=== PATIENT | female | born 1995 | race Caucasian/White ===

== ENCOUNTER 2016-08-14 17:55 | Emergency (ER) | payer MEDICAID ==
[~2016-08-14] VITALS: Ht 160 cm; Wt 56.0 kg
[2016-08-14 18:02] VITALS: Ht 160 cm; Wt 56.0 kg
--- NOTE | 2016-08-14 19:20 | ERD ---
ER Documentation Chief Complaint Date/Time DATE: 08/14/16 TIME: 19:05 Chief Complaint PELVIC PAIN N/V X1MTH , , LMP 06/08/16 HPI 21-year-old female who presented emergency room for lower abdominal pain/ cramping that radiates to her back for 2 days. No vaginal bleeding. Patient is 9 weeks . Denies headache, loss of consciousness, dizziness, blurry vision, changes in vision, photophobia, facial pain, ear pain, throat pain, difficulty swallowing, neck pain, shoulder pain, chest pain, cough, hemoptysis, loss of appetite, nausea, vomiting, hematochezia, diarrhea, constipation, urinary symptoms, bladder and bowel incontinences, extremity weakness, extremity tenderness, numbness or tingling sensation, difficulty walking, recent travel, recent exposure to illness, recent antibiotic use in the last 3 months, fever, chills LMP: June 10, 2016. A0 BLAKE: March 15, 2017. No known drug allergies. No past medical history. No surgical history. Social history: Not working at this time. Denies smoking, use of alcohol, use of illegal drugs. ROS All systems reviewed and are negative except as per history of present illness. Medications Home Meds Active Scripts Ondansetron Hcl* (Zofran*) 4 Mg Tablet, 4 MG PO Q8H Y for NAUSEA AND/OR VOMITING , #30 TAB Prov:ROBERTILABANKOKIAR F 08/14/16 Acetaminophen* (Tylenol*) 325 Mg Tablet, 1 TAB PO Q6 Y for PAIN AND OR ELEVATED TEMP, #20 TAB Prov:PASILABAN,KOKIAR F 08/14/16 Nitrofurantoin Monohyd Macrocr* (Macrobid*) 100 Mg Capsr, 100 MG PO BID for 7 Days, CAP Prov:PASILABAN,KLAR F 08/14/16 Allergies Allergies: Coded Allergies: No Known Allergy (Unverified , 08/14/16) PMhx/Soc Medical and Surgical Hx: pt denies Medical Hx, pt denies Surgical Hx Hx Alcohol Use: No Hx Substance Use: No Hx Tobacco Use: No Smoking Status: Never smoker Physical Exam Vitals Vital Signs Date Time Temp Pulse Resp B/P Pulse Ox O2 Delivery O2 Flow Rate FiO2 08/14/16 22:35 98.2 73 18 112/66 99 Room Air 08/14/16 18:02 97.4 79 20 107/74 99 Physical Exam CONSTITUTIONAL: Well-appearing; well-nourished; in no apparent distress. HEAD: Normocephalic; atraumatic. EYES: Conjunctiva clear, sclera non-icteric, EOM intact. PERRL Ears: Hearing intact. EACs clear, TMs non-bulging, non-inflamed, translucent & mobile, ossicles normal appearance, No obstructions, no erythema, no discharges Nose: No obstructions. No polyps. No external lesions. Mucosa non-inflamed. No external lesions, septum and turbinates normal. No rhinorrhea. No discharges. Frontal sinus is non-tender to palpation. Maxillary sinus is non-tender to palpation. MOUTH: Moist mucous membranes, no lesion, no obstructions, no vesicles, no thrush, patent airway Throat: Uvula in midline. Right tonsil is +1 with no erythema, no exudate. Left tonsil is +1 with no erythema, no exudate. Tolerating secretions well. Good gag reflex. Patent airway. Neck: Supple, without lesions, bruits, or adenopathy. No mass. Thyroid non- enlarged and non-tender to palpation. CHEST: Symmetrical chest. Respirations even and not labored. No retractions noted. CARDIOVASCULAR: Normal S1, S2. RRR. No murmurs, gallops. RESPIRATORY: Normal chest excursion with respiration; breath sounds clear and equal bilaterally; no wheezes, rhonchi, or rales. Breathing even and unlabored. Speaking in clear, full, and complete sentences w/ ease. ABDOMEN: Normal bowel sounds normal. Soft, round, non-distended, non-guarding, no tenderness, no rebound, no organomegaly, no masses, no pulsating abdominal mass. No hernia. No peritoneal signs. : No CVA tenderness. BACK: Symmetrical shoulder. Spine is midline without deformity, tenderness. No evidence of trauma or deformity. PELVIS: Stable pelvis. No evidence of trauma or deformity. MUSCULOSKELETAL: Normal gait and station. No misalignment, asymmetry, crepitation, defects, tenderness, masses, effusions, decreased range of motion, instability, atrophy or abnormal strength or tone in the head, neck, spine, ribs , pelvis or extremities. No calf tenderness. NEUROVASCULAR: Distal pulses are present. Pedal pulse are present, equal, and normal. Capillary refills are < 2 seconds. NEUROLOGIC: Alert and oriented x4. Speaks full and clear sentences. Cranial Nerves II-XII normal. Sensation to pain, touch, and proprioception normal. Grossly unremarkable. No neurologic deficits. Romberg test is negative. PSYCHOLOGICAL: The patients mood and manner are appropriate. No hallucinations , delusions. Not SI. Not HI. Has the capacity to decide for self SKIN: Normal for age and ethnicity; warm; dry; good turgor; no apparent lesions or exudates. No rashes, hives, discoloration. Intact. Result Diagram: 08/14/16193108/14/161931 Results 24 hrs Laboratory Tests Test 08/14/16 19:15 08/14/16 19:32 Urine Color LT. YELLOW Urine Clarity CLEAR Urine pH 6.5 Urine Specific [place] 1.010 Urine Ketones 40 Urine Nitrite NEGATIVE Urine Bilirubin NEGATIVE Urine Urobilinogen 0.2 E.U./dL Urine Leukocyte Esterase TRACE Urine Microscopic RBC 0-2/HPF Urine Microscopic WBC 0-2/HPF Urine Squamous Epithelial Cells FEW Urine Hemoglobin TRACE Urine Glucose NEGATIVE% Urine Total Protein NEGATIVE White Blood Count 7.910^3/ul Red Blood Count 4.7910^6/ul Hemoglobin 13.9g/dl Hematocrit 40.2% Mean Corpuscular Volume 83.9fl Mean Corpuscular Hemoglobin 29.0pg Mean Corpuscular Hemoglobin Concent 34.6g/dl Red Cell Distribution Width 12.2% Platelet Count 85952^3/UL Mean Platelet Volume 9.6fl Neutrophils % 75.3% Lymphocytes % 17.3% Monocytes % 5.7% Eosinophils % 0.8% Basophils % 0.4% Nucleated Red Blood Cells % 0.0/100WBC Neutrophils # 5.910^3/ul Lymphocytes # 1.410^3/ul Monocytes # 0.510^3/ul Eosinophils # 0.110^3/ul Basophils # 0.010^3/ul Nucleated Red Blood Cells # 0.010^3/ul Sodium Level 136mmol/L Potassium Level 3.4mmol/L Chloride Level 96mmol/L Carbon Dioxide Level 26mmol/L Anion Gap 17 Blood Urea Nitrogen 8mg/dl Creatinine 0.55mg/dl Glucose Level 89mg/dl Calcium Level 9.4mg/dl Total Bilirubin 0.4mg/dl Direct Bilirubin 0.00mg/dl Indirect Bilirubin 0.4mg/dl Aspartate Amino Transf (AST/SGOT) 29IU/L Alanine Aminotransferase (ALT/SGPT) 49IU/L Alkaline Phosphatase 90IU/L Total Protein 8.1g/dl Albumin 4.6g/dl Globulin 3.50g/dl Albumin/Globulin Ratio 1.31 Lipase 60U/L Serum HCG, Qualitative POSITIVE Beta HCG, Quantitative 730290.0mIU/ml Current Medications Medications (Trade) Dose Ordered Sig/William Route PRN Reason Start Time Stop Time Status Last Admin Dose Admin Ondansetron HCl (Zofran Odt) 4 mg ONCE STAT ODT 08/14/16 22:11 08/14/16 22:12 DC 08/14/16 22:26 Acetaminophen (Tylenol Tab) 500 mg ONCE STAT PO 08/14/16 22:11 08/14/16 22:12 DC 08/14/16 22:27 Procedures/MDM Examination: Please see physical examination. Disease process, medical treatment was explained to the patient and family member. They verbalized understanding and agreed with the diagnostic tests, medical treatment, and follow-up care. Radiology: OB ultrasound Impression: Single live intrauterine consistent with a gestational age of 9 weeks, 2 days. Estimated date of delivery is 03/17/2017. Dating by ultrasound is within 2 days of dating by LMP. Bilateral ovaries are not visualized. There are no abnormal adnexal masses. Blood works: Reviewed. Type and Rh is O-Negative. Patient denies vaginal bleeding. POC urine : Positive. Urinalysis: Reviewed. Treatment: Tylenol. Zofran. Re-evaluation: Denies headache, dizziness, blurry vision, neck pain, shoulder pain, chest pain, abdominal pain, back pain, nausea. No episode of emesis here in the emergency department. Denies active bleeding. No neurovascular deficits. No neurological deficits. Consultation: None. Differential diagnosis: Ectopic versus abdominal pain in versus urinary tract infection in Medical decision makin-year-old female who presented emergency room for lower abdominal pain/cramping that radiates to her back for 2 days. No vaginal bleeding. Patient's complaint, patient's history about her complaint, my physical findings, diagnostic test results, my reevaluation are consistent with final diagnosis of abdominal pain in , UTI. Medications prescribed are the following: Macrobid. Tylenol. Patient and family member are made aware of the side effects and adverse reactions of the medications prescribed. Instructed on when to seek emergent and medical attention in case allergic/anaphylactic reactions or severe side effects and or adverse reactions to medications. Patient and family member verbalized understanding. Patient instructed Instructed to follow-up with his PCP in 24-48 hours. Follow-up with OB in the next 24-48 hours. Instructed to Call 911 for chest pain, shortness of breath. Advised to come back here in ED as soon as possible for severity of symptoms which includes but not limited to: any new symptoms; shortness of breath/difficulty of breathing; cardiovascular changes; severe gastrointestinal symptoms; signs and symptoms of bleeding and or infection; signs of compartment syndrome/neurovascular changes; neurological changes/deficits. Patient and family member verbalized understanding. Upon discharge, patient is alert and oriented x 4, speaks full and clear sentences, denies pain, has no neurological deficits, has no neurovascular deficits, difficulty of breathing. Breathing even and unlabored. Lung sounds are clear to auscultation. Not in distress. Appears comfortable. Ambulatory with steady gait. Appears satisfied with care provided here in ED. Departure Diagnosis: Primary Impression: Abdominal pain during in first trimester Additional Impressions: Abdominal pain during UTI (urinary tract infection) in in first trimester Condition: Stable Additional Instructions: Patient instructed Instructed to follow-up with his PCP in 24-48 hours. Follow-up with OB in the next 24-48 hours. Instructed to Call 911 for chest pain, shortness of breath. Advised to come back here in ED as soon as possible for severity of symptoms which includes but not limited to: any new symptoms; shortness of breath/difficulty of breathing; cardiovascular changes; severe gastrointestinal symptoms; signs and symptoms of bleeding and or infection; signs of compartment syndrome/neurovascular changes; neurological changes/deficits. Patient and family member verbalized understanding. MICHELLE WOODS August 14, 2016 19:20
[2016-08-14 19:45] LABS: ADD SCAN DIFF NO
[2016-08-14 19:47] LABS: BASOPHILS % 0.4 % (0.0-2.0); EOSINOPHILS # 0.1 10^3/ul (0.0-0.5); EOSINOPHILS % 0.8 % (0.0-7.0); HEMATOCRIT 40.2 % (37.0-47.0); HEMOGLOBIN 13.9 g/dl (12.0-16.0); LYMPHOCYTES # 1.4 10^3/ul (0.8-2.9); LYMPHOCYTES % 17.3 % (15.0-51.0); MEAN CORPUSCULAR HGB CONC 34.6 g/dl (32.0-37.0); MEAN CORPUSCULAR VOLUME 83.9 fl (82.0-101.0); MEAN PLATELET VOLUME 9.6 fl (7.4-10.4); MONOCYTE # 0.5 10^3/ul (0.3-0.9); MONOCYTES % 5.7 % (0.0-11.0); NEUTROPHIL # 5.9 10^3/ul (1.6-7.5); NEUTROPHILS % 75.3 % (39.0-77.0); PLATELET COUNT 317 10^3/UL (140-415); RED BLOOD COUNT 4.79 10^6/ul (4.20-5.40); RED CELL DISTRIBUTION WIDTH 12.2 % (11.5-14.5); WHITE BLOOD COUNT 7.9 10^3/ul (4.8-10.8)
--- NOTE | 2016-08-14 19:56 | RADRPT ---
PROCEDURE: OBSTETRICAL ULTRASOUND WITH ENDOVAGINAL IMAGES CLINICAL INDICATION: abdominal pain, vaginal bleeding TECHNIQUE: Multiple sonographic images of the pelvis were obtained utilizing a transabdominal and endovaginal technique. The images were reviewed on a PACS workstation. COMPARISON: None. LMP: 06/08/2016 FINDINGS: There is a single live intrauterine with heart rate of 168 beats per minute, mean sa c diameter of 3.84 cm, and crown-rump length of 2.68 cm which is consistent with a gestational age o f 9 weeks, 2 days . The estimated date of delivery by ultrasound is 03/17/2017 . The estimated gestational age by LMP is 9 weeks, 4 days . The estimated date of delivery by LMP is 03/15/2017 . Bilateral ovaries are not visualized. There are no abnormal adnexal masses. No significant pelvic free fluid is identified. IMPRESSION: Single live intrauterine consistent with a gestational age of 9 weeks, 2 days . The estimated date of delivery is 03/17/2017 . Dating by ultrasound is within 2 days of dating by LMP. Bilateral ovaries are not visualized. There are no abnormal adnexal masses. RPTAT: EE Physician Belem Date Time Electronically viewed and signed by Physician Belem on 08/14/2016 19:56 /
[2016-08-14 20:02] LABS: ALBUMIN 4.6 g/dl (3.3-4.9)
[2016-08-14 20:03] LABS: POTASSIUM 3.4 mmol/L (3.5-5.1)
[2016-08-14 20:05] LABS: BILIRUBIN,INDIRECT 0.4 mg/dl (0-1.1); BILIRUBIN,TOTAL 0.4 mg/dl (0.2-1.3); CREATININE 0.55 mg/dl (0.44-1.00)
[2016-08-14 20:06] LABS: ALBUMIN/GLOBULIN RATIO 1.31; CALCIUM 9.4 mg/dl (8.4-10.2); TOTAL PROTEIN 8.1 g/dl (6.1-8.1)
[2016-08-14 20:07] LABS: ADD UMIC YES; URINE BILIRUBIN (Dip) NEGATIVE (NEGATIVE); URINE BLOOD (Dip) TRACE (NEGATIVE); URINE COLOR LT. YELLOW (YELLOW); URINE GLUCOSE (Dip) NEGATIVE (NEGATIVE); URINE KETONES (Dip) 40 (NEGATIVE); URINE LEUKOCYTE ESTERASE (Dip) TRACE (NEGATIVE); URINE NITRITE (Dip) NEGATIVE (NEGATIVE); URINE TOTAL PROTEIN (Dip) NEGATIVE (NEGATIVE); URINE UROBILINOGEN (Dip) 0.2 E.U./dL (0.1-1.0)
[2016-08-14 20:17] LABS: SQUAMOUS EPITHELIAL CELL,UR FEW; URINE RBCS 0-2 /HPF (0)
[2016-08-14] MEDS ORDERED: ACET325T33 PO (22:10)
[2016-08-14] MEDS ORDERED: ONDA4TAB8 PO (22:10)
[2016-08-14] MEDS ORDERED: NITR-58 PO (22:10)
[2016-08-14] MEDS ORDERED: ONDANSETRON (ODT) 4 MG TAB ODT STA (22:11)
[2016-08-14] MEDS ORDERED: ACETAMINOPHEN 500 MG TAB PO STA (22:11)
[2016-08-14 22:35] VITALS: BP 112/66; PULSE 73; RESP 18; TEMP 98.2
== END 2016-08-14 22:36 | disposition home or self-care (01) ==
LOC: FTE 17:55
DX: O26.891 Other specified pregnancy related conditions, first trimester (principal); R10.2 Pelvic and perineal pain; O23.41 Unspecified infection of urinary tract in pregnancy, first trimester; Z3A.09 9 weeks gestation of pregnancy
CPT/HCPCS: 36415; 76801; 80053; 81001; 83690; 84702; 84703; 85025; 86900; 86901; Z7502; Z7610; 81003

== ENCOUNTER 2016-08-27 17:40 | Emergency (ER) | payer MEDICAID ==
[~2016-08-27] VITALS: Wt 54.5 kg
[~2016-08-27 17:40] MED LIST: ACET325T33 PO; NITR-58 PO; ONDA4TAB8 PO
[2016-08-27] MEDS ORDERED: SOD CHLORIDE 0.9% 1,000 ML IV STA (19:23)
--- NOTE | 2016-08-27 20:34 | RADRPT ---
PROCEDURE: US OB. CLINICAL INDICATION: Vomiting. TECHNIQUE: Multiple sonographic images of the pelvis were obtained. Transabdominal and transvagin al views of the pelvis are available for review. The images were reviewed on a PACS workstation. COMPARISON: 08/14/2016 FINDINGS: A single live intrauterine is identified. heart rate is 166 beats per minute. The cr own-rump length is 52.5 mm which corresponds to 11 weeks 6 days gestational age by ultrasound criter ia. Estimated date of delivery is 03/12/2017. No subchorionic hemorrhage is identified. There is 1.9 cm simple cyst in the right ovary. Right ovary is otherwise normal appearance with vascular jason w. Left ovary was not visualized. There is no adnexal mass or free fluid. IMPRESSION: 1. Single live intrauterine gestation of approximately 11 weeks 6 days. 2. No subchorionic hemorrhage. 3. Simple right ovarian cyst. 4. Left ovary not visualized. RPTAT: [facility]VK .Ricky Hopson MD, Date Time Electronically viewed and signed by .Ricky Hopson MD, MD on 08/27/2016 20:33 .K/
[2016-08-27 20:39] LABS: ADD SCAN DIFF NO
[2016-08-27 20:42] LABS: BASOPHILS % 0.4 % (0.0-2.0); EOSINOPHILS # 0.1 10^3/ul (0.0-0.5); EOSINOPHILS % 0.7 % (0.0-7.0); HEMATOCRIT 39.3 % (37.0-47.0); HEMOGLOBIN 13.6 g/dl (12.0-16.0); LYMPHOCYTES # 1.3 10^3/ul (0.8-2.9); LYMPHOCYTES % 17.2 % (15.0-51.0); MEAN CORPUSCULAR HEMOGLOBIN 28.8 pg (29.0-33.0); MEAN CORPUSCULAR HGB CONC 34.6 g/dl (32.0-37.0); MEAN CORPUSCULAR VOLUME 83.3 fl (82.0-101.0); MEAN PLATELET VOLUME 9.7 fl (7.4-10.4); MONOCYTE # 0.4 10^3/ul (0.3-0.9); MONOCYTES % 5.7 % (0.0-11.0); NEUTROPHIL # 5.7 10^3/ul (1.6-7.5); NEUTROPHILS % 75.7 % (39.0-77.0); PLATELET COUNT 298 10^3/UL (140-415); RED BLOOD COUNT 4.72 10^6/ul (4.20-5.40); RED CELL DISTRIBUTION WIDTH 12.3 % (11.5-14.5); WHITE BLOOD COUNT 7.5 10^3/ul (4.8-10.8)
[2016-08-27 20:51] LABS: URINE BILIRUBIN (Dip) 1+ (NEGATIVE); URINE BLOOD (Dip) NEGATIVE (NEGATIVE); URINE COLOR ORANGE (YELLOW); URINE GLUCOSE (Dip) NEGATIVE (NEGATIVE); URINE KETONES (Dip) 3+ (NEGATIVE); URINE LEUKOCYTE ESTERASE (Dip) NEGATIVE (NEGATIVE); URINE NITRITE (Dip) NEGATIVE (NEGATIVE); URINE UROBILINOGEN (Dip) 1.0 E.U./dL (0.1-1.0)
[2016-08-27 20:54] LABS: ALBUMIN 4.9 g/dl (3.3-4.9); ALBUMIN/GLOBULIN RATIO 1.75; BILIRUBIN,INDIRECT 0.7 mg/dl (0-1.1); BILIRUBIN,TOTAL 0.7 mg/dl (0.2-1.3); CALCIUM 9.3 mg/dl (8.4-10.2); CREATININE 0.55 mg/dl (0.44-1.00); POTASSIUM 3.7 mmol/L (3.5-5.1); TOTAL PROTEIN 7.7 g/dl (6.1-8.1)
--- NOTE | 2016-08-27 20:54 | ERD ---
ER Documentation Chief Complaint Date/Time DATE: 08/27/16 TIME: 20:51 Chief Complaint NBAUSEA, VOMITING, PT 11 WKS PG, REFERED PER PMD HPI This is a 21-year-old female presenting to the emergency department with nausea , vomiting and dizziness. Patient is currently 11 weeks . Patient is a A0. Patient recently lost 7 pounds within the last month due to nausea and vomiting. Patient is vomiting several times a day nonbloody nonbilious emesis. Patient was seen by her REPRODUCTION ARTIST and was referred to the ER for evaluation. No fevers or chills. No abdominal pain or pelvic pain. No vaginal bleeding or vaginal discharge. No rashes or pruritus. No weakness, malaise, chest pain, shortness of breath or difficulty breathing. ROS All systems reviewed and are negative except as per history of present illness. Medications Home Meds Active Scripts Acetaminophen* (Tylenol*) 325 Mg Tablet, 2 TAB PO Q6 Y for PAIN AND OR ELEVATED TEMP, #20 TAB Prov:SUSANA VEGA NP 08/27/16 Ondansetron Hcl* (Zofran*) 4 Mg Tablet, 4 MG PO Q6H for NAUSEA AND/OR VOMITING, #10 TAB Prov:SUSANA VEGA NP 08/27/16 Ondansetron Hcl* (Zofran*) 4 Mg Tablet, 4 MG PO Q8H Y for NAUSEA AND/OR VOMITING , #30 TAB Prov:MICHELLE WOODS F 08/14/16 Acetaminophen* (Tylenol*) 325 Mg Tablet, 1 TAB PO Q6 Y for PAIN AND OR ELEVATED TEMP, #20 TAB Prov:MICHELLE WOODS F 08/14/16 Nitrofurantoin Monohyd Macrocr* (Macrobid*) 100 Mg Capsr, 100 MG PO BID for 7 Days, CAP Prov:PASILAKOKI COLLINSAR F 08/14/16 Allergies Allergies: Coded Allergies: No Known Allergy (Unverified , 08/14/16) PMhx/Soc Medical and Surgical Hx: pt denies Medical Hx, pt denies Surgical Hx Hx Alcohol Use: No Hx Substance Use: No Hx Tobacco Use: No Smoking Status: Never smoker Physical Exam Vitals Vital Signs Date Time Temp Pulse Resp B/P Pulse Ox O2 Delivery O2 Flow Rate FiO2 08/27/16 22:15 72 17 90/56 99 Room Air 08/27/16 17:43 97.7 77 17 104/60 98 Physical Exam Const: no acute distress, alert Head: Atraumatic Eyes: Normal Conjunctiva ENT: Normal External Ears, Nose and Mouth. Neck: Full range of motion..~ No meningismus. Resp: Clear to auscultation bilaterally. No wheezing, rhonchi or crackles. Cardio: Regular rate and rhythm, no murmurs Abd: Soft, non tender, non distended. Normal bowel sounds Skin: No petechiae or rashes Back: No midline or flank tenderness Ext: No cyanosis, or edema Neur: Awake and alert Psych: Normal Mood and Affect Result Diagram: 08/27/16200408/27/162004 Results 24 hrs Laboratory Tests Test 08/27/16 20:00 08/27/16 20:05 Urine Color ORANGE Urine Clarity SL.CLOUDY Urine pH 6.0 Urine Specific [place] 1.025 Urine Ketones 3+ Urine Nitrite NEGATIVE Urine Bilirubin 1+ Urine Ictotest NEGATIVE Urine Urobilinogen 1.0 E.U./dL Urine Leukocyte Esterase NEGATIVE Urine Microscopic RBC NONE SEEN/HPF Urine Microscopic WBC 10-25/HPF Urine Squamous Epithelial Cells MANY Urine Bacteria MODERATE Urine Mucus MANY Urine Yeast FEW Urine Hemoglobin NEGATIVE Urine Glucose NEGATIVE% Urine Total Protein NEGATIVE White Blood Count 7.510^3/ul Red Blood Count 4.7210^6/ul Hemoglobin 13.6g/dl Hematocrit 39.3% Mean Corpuscular Volume 83.3fl Mean Corpuscular Hemoglobin 28.8pg Mean Corpuscular Hemoglobin Concent 34.6g/dl Red Cell Distribution Width 12.3% Platelet Count 66650^3/UL Mean Platelet Volume 9.7fl Neutrophils % 75.7% Lymphocytes % 17.2% Monocytes % 5.7% Eosinophils % 0.7% Basophils % 0.4% Nucleated Red Blood Cells % 0.0/100WBC Neutrophils # 5.710^3/ul Lymphocytes # 1.310^3/ul Monocytes # 0.410^3/ul Eosinophils # 0.110^3/ul Basophils # 0.010^3/ul Nucleated Red Blood Cells # 0.010^3/ul Sodium Level 136mmol/L Potassium Level 3.7mmol/L Chloride Level 103mmol/L Carbon Dioxide Level 26mmol/L Anion Gap 11 Blood Urea Nitrogen 10mg/dl Creatinine 0.55mg/dl Glucose Level 78mg/dl Calcium Level 9.3mg/dl Total Bilirubin 0.7mg/dl Direct Bilirubin 0.00mg/dl Indirect Bilirubin 0.7mg/dl Aspartate Amino Transf (AST/SGOT) 25IU/L Alanine Aminotransferase (ALT/SGPT) 38IU/L Alkaline Phosphatase 83IU/L Total Protein 7.7g/dl Albumin 4.9g/dl Globulin 2.80g/dl Albumin/Globulin Ratio 1.75 Beta HCG, Quantitative 556364.0mIU/ml Current Medications Medications (Trade) Dose Ordered Sig/William Route PRN Reason Start Time Stop Time Status Last Admin Dose Admin Sodium Chloride (NS) 1,000 ml @ 1,000 mls/hr Q1H STAT IV 08/27/16 19:23 08/27/16 20:22 DC 08/27/16 20:13 Procedures/MDM Patient: KASHIF ALTMAN : 1995 Age: 21 Sex: F MR #: [id number] DOS: 08/27/16 1923 Ordering MD: SUSANA VEGA NP Location: [facility] Room/Bed: PROCEDURE: US OB. CLINICAL INDICATION: Vomiting. TECHNIQUE: Multiple sonographic images of the pelvis were obtained. Transabdominal and transvaginal views of the pelvis are available for review. The images were reviewed on a PACS workstation. COMPARISON: 08/14/2016 FINDINGS: A single live intrauterine is identified. heart rate is 166 beats per minute. The crown-rump length is 52.5 mm which corresponds to 11 weeks 6 days gestational age by ultrasound criteria. Estimated date of delivery is 03/12/2017. No subchorionic hemorrhage is identified. There is 1.9 cm simple cyst in the right ovary. Right ovary is otherwise normal appearance with vascular flow. Left ovary was not visualized. There is no adnexal mass or free fluid. IMPRESSION: 1. Single live intrauterine gestation of approximately 11 weeks 6 days. 2. No subchorionic hemorrhage. 3. Simple right ovarian cyst. 4. Left ovary not visualized. MDM: 21-year-old female presents emergency department for nausea, vomiting and dizziness. Patient states she has been nauseous and vomiting for the past 11 weeks since she has been . Patient has lost 7 pounds in the past 11 weeks due to vomiting. Patient states she does have dizziness that is worse with standing. Vital signs are stable. No fevers or chills. IV access obtained and patient given 1 L IV fluid bolus. OB ultrasound reviewed by radiologist as single live intrauterine gestation of approximately 11 weeks 6 days. No subchorionic hemorrhage. Simple right ovarian cyst. Left ovary not visualized. Upon reassessment, patient now denies nausea, vomiting or dizziness. Patient states she is feeling much better. Vitals are stable. Labs are unremarkable. Low suspicion for anemia, ectopic , acute NM, CVA, subdural hematoma, UTI or pyelonephritis. Differential diagnosis includes but not limited to hyperemesis gravidarum, nausea and vomiting in , viral gastroenteritis , gastritis, GERD, peptic ulcer disease or pneumonia. Patient is appropriate for outpatient management and will be given prescription for Zofran and Tylenol. Instructed patient to follow-up with REPRODUCTION ARTIST, [facility] group in the next 2-3 days for reassessment and additional management. Return to ED for any high fever, chest pain, difficulty breathing, shortness breath, wheezing, vomiting, diarrhea, abdominal pain or any new or worsening symptoms. Patient verbalizes understanding. All questions answered at discharge. Beninese translation use during this encounter. Departure Diagnosis: Primary Impression: Nausea and vomiting Vomiting type: unspecified Vomiting Intractability: unspecified Qualified Code: R11.2 - Nausea and vomiting, intractability of vomiting not specified, unspecified vomiting type Condition: Stable SUSANA VEGA NP Aug 27, 2016 20:54
[2016-08-27 21:03] LABS: ADD UMIC NO; ICTOTEST NEGATIVE (NEGATIVE); URINE TOTAL PROTEIN (Dip) NEGATIVE (NEGATIVE)
[2016-08-27 21:05] LABS: BACTERIA,URINE MODERATE; MUCUS,URINE MANY; SQUAMOUS EPITHELIAL CELL,UR MANY; URINE RBCS NONE SEEN /HPF (0)
[2016-08-27] MEDS ORDERED: ONDA4TAB8 PO (21:53)
[2016-08-27] MEDS ORDERED: ACET325T33 PO (21:53)
[2016-08-27 22:15] VITALS: BP 90/56; PULSE 72; RESP 17
== END 2016-08-27 22:16 | disposition home or self-care (01) ==
LOC: FTE 17:40
DX: O21.9 Vomiting of pregnancy, unspecified (principal); Z3A.11 11 weeks gestation of pregnancy
CPT/HCPCS: 76801; 80053; 81001; 81003; 84702; 85025; 86900; 86901; 87086; J7030; 36415

== ENCOUNTER 2017-03-11 19:34 | Inpatient (IN) | payer MEDICAID ==
[~2017-03-11] VITALS: Ht 153.7 cm; Wt 66.5 kg
[~2017-03-11 19:34] MED LIST changes: -ACET325T33 PO; -NITR-58 PO; -ONDA4TAB8 PO; +PREN-6 PO
[2017-03-11 21:44] LABS: ADD UMIC YES; UR ASCORBIC ACID NEGATIVE (NEGATIVE); UR BACTERIA FEW /HPF (NONE SEEN); UR BILIRUBIN (Dip) NEGATIVE (NEGATIVE); UR BLOOD (Dip) NEGATIVE (NEGATIVE); UR CLARITY CLEAR (CLEAR); UR COLOR STRAW (YELLOW); UR GLUCOSE (Dip) NEGATIVE (NEGATIVE); UR KETONES (Dip) NEGATIVE (NEGATIVE); UR LEUKOCYTE ESTERASE (Dip) TRACE Leu/ul (NEGATIVE); UR NITRITE (Dip) NEGATIVE (NEGATIVE); UR RBC 1 /HPF (0-5); UR SPECIFIC GRAVITY (Dip) 1.008 (1.003-1.030); UR TOTAL PROTEIN (Dip) NEGATIVE (NEGATIVE); UR UROBILINOGEN (Dip) NEGATIVE (NEGATIVE)
[2017-03-11] MEDS: LACTATED RINGER'S 1,000 ML IV SCH (23:29)
[2017-03-11] MEDS ORDERED: IBUPROFEN 600 MG TAB PO PRN (23:30)
[2017-03-11] MEDS ORDERED: OXYTOCIN 30 UNITS/LR 500 ML IV PRN (23:30)
[2017-03-11] MEDS ORDERED: OXYTOCIN 30 UNITS/LR 500 ML IV SCH ×2 (23:30)
[2017-03-11] MEDS ORDERED: LIDOCAINE 1% (MPF) 30 ML INJ INJ PRN (23:30)
[2017-03-11] MEDS ORDERED: METHYLERGONOVINE 0.2 MG INJ IM PRN (23:30)
[2017-03-11] MEDS ORDERED: MISOPROSTOL 200 MCG TAB PR PRN (23:30)
[2017-03-11] MEDS ORDERED: CARBOPROST 250 MCG INJ IM PRN (23:30)
[2017-03-11 23:47] LABS: BASOPHILS % 0.3 % (0.0-2.0); EOSINOPHILS % 0.5 % (0.0-7.0); HEMATOCRIT 31.7 % (37.0-47.0); HEMOGLOBIN 10.6 g/dl (12.0-16.0); LYMPHOCYTES # 1.2 10^3/ul (0.8-2.9); MEAN CORPUSCULAR HEMOGLOBIN 26.5 pg (29.0-33.0); MEAN CORPUSCULAR HGB CONC 33.4 g/dl (32.0-37.0); MEAN CORPUSCULAR VOLUME 79.3 fl (82.0-101.0); MEAN PLATELET VOLUME 11.2 fl (7.4-10.4); MONOCYTE # 0.4 10^3/ul (0.3-0.9); MONOCYTES % 5.7 % (0.0-11.0); NEUTROPHILS % 75.2 % (39.0-77.0); PLATELET COUNT 254 10^3/UL (140-415); RED CELL DISTRIBUTION WIDTH 14.5 % (11.5-14.5); WHITE BLOOD COUNT 6.7 10^3/ul (4.8-10.8)
--- NOTE | 2017-03-12 00:10 | TRIAGE ---
OB Triage Datetime Report Generated by CPN: 03/12/2017 00:09 Datetime: 03/11/2017 22:51 Labor Evaluation Frequency: 2-6 Monitor Mode: External Quality: Moderate Pattern: Normal: <= 5 Contractions in 10 Minutes Resting Tone Palominas: Relaxed Heart Rate FHR Baseline Rate: 130 Monitor Mode: External US FHR Baseline Changes: No Baseline Change Variability: Moderate 6-25 bpm Accelerations: 15X15 Decelerations: None Category: Category I Pain Assessment Pain Scale: 6 Pain Presence: Intermittent Pain Type: Contraction Pain Location: Abdomen Vaginal Exam Dilatation (cms): 4.0 Effacement (%): 90 Station: -2 Exam By: Greg Mcmahon Membrane Status: Intact Vaginal Bleeding: Scant Cervix, Consistency: Soft Cervix, Position: Posterior Presentation 'A': Cephalic Datetime: 03/11/2017 22:34 Stage of : OB Triage Monitor Mode: External Quality: Moderate Resting Tone Palominas: Relaxed Monitor Mode: External US Datetime: 03/11/2017 20:59 Stage of : OB Triage Heart Rate FHR Baseline Rate: 135 Monitor Mode: External US FHR Baseline Changes: No Baseline Change Variability: Moderate 6-25 bpm Accelerations: 15X15 Decelerations: None Datetime: 03/11/2017 20:39 Time of Arrival: 03/11/2017 19:28 EGA: 39.3 Arrived By: Wheelchair Arrived From: Home Chief Complaint: c/o irreg ucs Movement: Present Contractions: Irregular Time Contractions Began: 03/11/2017 20:00 Contractions: 10-15 Rupture of Membranes: Denies Vaginal Discharge: Denies Recent Sexual Intercouse: Denies Abdominal Trauma: Not Applicable Patient Complaints: Contractions Time Provider Notified: 03/11/2017 21:00 Provider Notified: Dr Decker Initial Plan: EFM,SVE Datetime: 03/11/2017 20:37 Monitor Mode: External Quality: Mild Pattern: Normal: <= 5 Contractions in 10 Minutes Resting Tone Palominas: Relaxed Heart Rate FHR Baseline Rate: 140 Monitor Mode: External US FHR Baseline Changes: No Baseline Change Variability: Moderate 6-25 bpm Accelerations: 15X15 Decelerations: None Category: Category I Pain Assessment Pain Scale: 5 Pain Presence: Intermittent Pain Type: Cramping Pain Location: Abdomen Vaginal Exam Dilatation (cms): 1.5 Effacement (%): 80 Station: -2 Exam By: Greg MCMAHON Membrane Status: Intact Vaginal Bleeding: Scant Cervix, Consistency: Soft Cervix, Position: Posterior Presentation 'A': Cephalic Datetime: 03/11/2017 19:48 Stage of : OB Triage Maternal Assessment Level of Consciousness: Fully Conscious Headache: Denies Blurred Vision: No Nausea/Vomiting: Denies RUQ Epigastric Pain: Denies Facial Edema: None Monitor Mode: External Resting Tone Palominas: Relaxed Heart Rate FHR Baseline Rate: 140 Monitor Mode: External US Pain Assessment Pain Scale: 6 Pain Presence: Intermittent Pain Type: Contraction Pain Location: Abdomen Datetime: 02/01/2017 08:10 Stage of : OB Triage Datetime: 02/01/2017 07:26 Labor Evaluation Frequency: 00 Monitor Mode: External Duration (sec)2399: 0 Pattern: Tachysystole: > 5 Contractions in 10 Minutes Resting Tone Palominas: Relaxed Contraction Comments: pt dfenies uc's Heart Rate FHR Baseline Rate: 135 Monitor Mode: External US Variability: Moderate 6-25 bpm Accelerations: 15X15 Decelerations: None Category: Category I Datetime: 02/01/2017 07:15 Stage of : OB Triage Assessment Type: Triage Maternal Assessment Level of Consciousness: Fully Conscious DTR's/Clonus: DTRs 2+; No Clonus Headache: Denies Blurred Vision: No Respiratory Effort: Unlabored; Regular Rhythm; Equal Expansion Breath Sounds, Left: Clear and Equal Breath Sounds, Right: Clear and Equal Nausea/Vomiting: Denies RUQ Epigastric Pain: Denies Lower Extremities Edema: None Degree: None Upper Extremities Edema: None Degree: None Facial Edema: None Temperature Route: Axillary Fall Risk Assessment History of Falling: (0) No Secondary Diagnosis: (0) No Ambulatory Aid: (0) Bedrest/Nurse Assist IV Therapy: (0) No Gait: (0) Normal/Bedrest/Immobile Mental Status: (0) Oriented to Own Ability Fall Score: 0 Fall Risk Score Definition: No Risk: No action required Pain Assessment Pain Scale: 0 Pain Presence: None/Denies Pain Type: N/A Datetime: 02/01/2017 06:42 Assessment Type: Triage Maternal Assessment Level of Consciousness: Fully Conscious DTR's/Clonus: DTRs 2+; No Clonus Headache: Denies Blurred Vision: No Respiratory Effort: Unlabored Breath Sounds, Left: Clear and Equal Breath Sounds, Right: Clear and Equal Nausea/Vomiting: Denies RUQ Epigastric Pain: Denies Lower Extremities Edema: Bilateral Lower Extremities Degree: 1+ Upper Extremities Edema: None Degree: None Facial Edema: None Fall Risk Assessment History of Falling: (0) No Secondary Diagnosis: (0) No Ambulatory Aid: (0) Bedrest/Nurse Assist IV Therapy: (0) No Gait: (0) Normal/Bedrest/Immobile Mental Status: (0) Oriented to Own Ability Fall Score: 0 Fall Risk Score Definition: No Risk: No action required Datetime: 02/01/2017 06:40 Time of Arrival: 02/01/2017 06:20 EGA: 34.0 Arrived By: Wheelchair Arrived From: Home Chief Complaint: DFM Movement: Absent Contractions: Denies/Absent Rupture of Membranes: Denies Vaginal Bleeding: None Vaginal Discharge: Denies Recent Sexual Intercouse: Denies Abdominal Trauma: Not Applicable Patient Complaints: Other Time Provider Notified: 02/01/2017 08:10 Provider Notified: DR. OLSON Initial Plan: VS, EFM, BPP Datetime: 02/01/2017 06:32 Stage of : OB Triage Monitor Mode: External Monitor Mode: External US
[2017-03-12 00:18] LABS: INR 0.86; PARTIAL THROMBOPLASTIN TIME 24.9 Sec (25.0-35.0); PROTIME 11.8 Sec (11.9-14.9); PT RATIO 0.9
[2017-03-12] MEDS: BUTORPHANOL 2 MG INJ IV PRN ×2 (00:52→05:34)
[2017-03-12 05:28] VITALS: Ht 153.7 cm; Wt 66.5 kg
[2017-03-12] MEDS: LACTATED RINGER'S 1,000 ML IV SCH ×3 (06:51→16:20)
[2017-03-12] MEDS ORDERED: ONDANSETRON 4 MG INJ ONE (09:23)
[2017-03-12] MEDS ORDERED: ONDANSETRON 4 MG INJ IV PRN ×2 (09:30→15:00)
[2017-03-12] MEDS ORDERED: ACETAMINOPHEN 325 MG TAB PO ONE (09:30)
[2017-03-12] MEDS ORDERED: OXYTOCIN 30 UNITS/LR 500 ML IV SCH (11:00)
[2017-03-12] MEDS ORDERED: FENTAnyl 2MCG/ML-ROPIV 0.2% 100 ML ONE (14:17)
--- NOTE | 2017-03-12 14:48 | HP ---
Date/Time of Note Date/Time of Note DATE: 03/12/17 TIME: 14:42 OB - History Hx of Present Free Text/Dictation 21-year-old female at 39+ weeks gestation admitted complaining of liver pain started a few hours prior to admission Denies rupture of membrane Last Menstrual Period: Jun 08, 2016 Estimated Due Date: Mar 15, 2017 : 1 Para: 0 Care: Good Care Ultrasounds: Normal mid trimester US Obstetrical Complications: None Medical Complications: None Past Family/Social History * Past Medical, Surgical, Family and Obstetric Histories reviewed from chart. Blood Type: O- Rubella: immune RPR/VDRL: Negative GBS Status: Negative HBsAG: Negative OB Admission Exam Physical Exam HEENT: WNL Heart: Rhythm Normal Lungs: Clear, Equal Abdomen: WNL Extremities: Normal Reflexes: Normal Cervical Dilatation: 4cm Effacement: 75% Station: -2 Membranes: Intact Heart Rate: 140's Accelerations: Accelerations Present Decelerations: No Decelerations Varibility: Moderate Contractions on Admission: < 5 Minutes Apart Date/Time Contractions Began: 03/12/2017 Frequency of Contractions: Every 3 minutes Intensity: Moderate Last 72 hours Lab Results CBC & BMP 03/11/17 23:15 OB Assessment/Plan Other Assessment: Term gestation Liver pains Other plan: Proceed with labor HERMELINDA ERWIN MD Mar 12, 2017 14:48
[2017-03-12] MEDS ORDERED: DIPHENHYDRAMINE 50 MG INJ IV PRN (15:00)
[2017-03-12] MEDS ORDERED: FENTAnyl 2MCG/ML-ROPIV 0.2% 100 ML BAG EPI SCH (15:00)
[2017-03-12] MEDS ORDERED: EPHEDrine SULFATE 50 MG/5 ML SYG IV PRN (15:00)
[2017-03-12] MEDS ORDERED: NALOXONE (0.4 MG/ML) INJ IV PRN (15:00)
--- NOTE | 2017-03-12 20:03 | LDN ---
Date/Time of Note Date/Time of Note DATE: 03/12/17 TIME: 20:00 Delivery Summary Normal spontaneous vaginal delivery of a viable over intact perineum Weeks of Gestation 39+ Placenta Delivered: Spontaneously, Intact & Complete Meconium: none Episiotomy: No Perineal laceration: 1 Laceration repair: First-degree perineal laceration was repaired in normal fashion and in layers with 2-0 Vicryl in deeper layers and 2-0 chromic and superficial leg Anesthesia type: Epidural Estimated blood loss: 300 Sponge & Needle done & correct: Yes All needle counts correct: Yes Any foreign bodies felt in the: No Problems: Infant Delivery Information Sex Infant Sex: male Apgars 1 Minute: 8 5 Minute: 9 Suctioning Nose & mouth suctioned at mana: Yes Delee suction performed: No Umbilical Cord Umbilical cord with: 3 Vessels Cord presentations: no nuchal cord Cord Blood was obtained: Yes Mother & Baby Disposition Disposition Mom & Baby to Maternity; Good: Yes (Mother and baby were recovered in good condition) Mom transferred to: Other (Maternity) Baby to NICU: No HERMELINDA ERWIN MD Mar 12, 2017 20:03
[2017-03-12 22:15] VITALS: BP 115/64; PULSE 86; RESP 18
[2017-03-12 22:45] VITALS: BP 113/58; PULSE 92; RESP 20
[2017-03-12] MEDS ORDERED: WITCH HAZEL/GLYCERIN PAD PR PRN (23:30)
[2017-03-12] MEDS ORDERED: LANOLIN 7 GM TUBE TOP PRN (23:30)
[2017-03-12] MEDS ORDERED: OXYTOCIN 30 UNITS/LR 500 ML IV PRN (23:30)
[2017-03-12] MEDS ORDERED: METHYLERGONOVINE 0.2 MG INJ IM PRN (23:30)
[2017-03-12] MEDS ORDERED: MISOPROSTOL 200 MCG TAB PR PRN (23:30)
[2017-03-12] MEDS ORDERED: BENZOCAINE 20% 56 ML SPRAY TOP PRN (23:30)
[2017-03-12] MEDS ORDERED: DIBUCAINE 1% 30 GM OINT PR PRN (23:30)
[2017-03-12] MEDS ORDERED: CARBOPROST 250 MCG INJ IM PRN (23:30)
[2017-03-12] MEDS ORDERED: HYDROCODONE/APAP (5/325) TAB PO PRN ×2 (23:30)
[2017-03-12] MEDS ORDERED: ZOLPIDEM 5 MG TAB PO PRN (23:30)
[2017-03-13] VITALS: BP 108/54; PULSE 80; RESP 20
[2017-03-13] MEDS: IBUPROFEN 600 MG TAB PO SCH ×4 (00:28→17:57)
[2017-03-13] MEDS: CEPHALEXIN 500 MG CAP PO SCH ×4 (00:28→17:57)
[2017-03-13] MEDS: LACTATED RINGER'S 1,000 ML IV* SCH (00:28)
[2017-03-13 04:00] VITALS: BP 96/52; PULSE 80; RESP 20
[2017-03-13 08:20] VITALS: BP 104/55; PULSE 80; RESP 14
[2017-03-13] MEDS: SENNA/DOCUSATE NA (8.6MG/50MG) TAB PO SCH ×2 (09:46→21:00)
[2017-03-13] MEDS: MAGNESIUM HYDROXIDE 30ML CUP PO SCH ×2 (09:47→21:00)
[2017-03-13 10:55] LABS: BASOPHILS % 0.2 % (0.0-2.0); EOSINOPHILS % 0.2 % (0.0-7.0); HEMATOCRIT 25.3 % (37.0-47.0); HEMOGLOBIN 8.3 g/dl (12.0-16.0); LYMPHOCYTES # 1.1 10^3/ul (0.8-2.9); MEAN CORPUSCULAR HEMOGLOBIN 26.2 pg (29.0-33.0); MEAN CORPUSCULAR HGB CONC 32.8 g/dl (32.0-37.0); MEAN CORPUSCULAR VOLUME 79.8 fl (82.0-101.0); MONOCYTE # 0.6 10^3/ul (0.3-0.9); MONOCYTES % 4.7 % (0.0-11.0); NEUTROPHIL # 10.4 10^3/ul (1.6-7.5); NEUTROPHILS % 85.4 % (39.0-77.0); PLATELET COUNT 195 10^3/UL (140-415); RED BLOOD COUNT 3.17 10^6/ul (4.20-5.40); WHITE BLOOD COUNT 12.2 10^3/ul (4.8-10.8)
[2017-03-13 12:11] VITALS: BP 101/57; PULSE 77; RESP 16
[2017-03-13 16:00] VITALS: BP 98/53
--- NOTE | 2017-03-13 16:58 | DS ---
Date/Time of Note Date/Time of Note Home next day DATE: 03/13/17 TIME: 16:55 Obstetrical Discharge Record Final Diagnosis Final Diagnosis: Term delivered Other Final Diagnosis S/P vaginal delivery Vaginal Delivery Obstetrical Delivery: Spontaneous, Laceration, Repaired Complications Augmentation: Yes Induction: Yes Condition on Discharge Physical Assessment Voiding: Yes Bowel Movement: Yes Breast: Soft, non-tender, Filling Fundus: Firm Abdomen and Incision: Abdomen is soft bowel sounds present Fundus is firm at the umbilicus Episiotomy: Perineum is healing well and appears clean Calf Tenderness: No Patient Condition: Good HERMELINDA ERWIN MD Mar 13, 2017 16:58
--- NOTE | 2017-03-13 16:59 | PD.PPDC ---
[employer] Discharge Instruction Provider Information Physician Information 21-year-old female had vaginal delivery Diagnosis Final Diagnosis: Status post vaginal delivery Condition Patient Condition: Good Diet Diet: Resume Regular Diet Activity/Restrictions Activity: Normal Activity May Shower Restrictions: Nothing in the Vagina Return to Work or School: Apr 26, 2017 Follow-up Follow-up with Physician: 4, Week/Weeks Return to clinic for OB Instructions: Breast Tenderness Depression Comment: Pelvic rest 6 weeks HERMELINDA ERWIN MD Mar 13, 2017 16:59
[2017-03-13] MEDS ORDERED: IBUP-1542 PO (17:00)
[2017-03-13 20:25] VITALS: BP 104/60; PULSE 76; RESP 18
[2017-03-14] MEDS: IBUPROFEN 600 MG TAB PO SCH ×3 (00:06→12:23)
[2017-03-14] MEDS: CEPHALEXIN 500 MG CAP PO SCH ×3 (00:06→12:23)
[2017-03-14] MEDS: LACTATED RINGER'S 1,000 ML IV* SCH (00:21)
[2017-03-14 04:20] VITALS: BP 106/63; PULSE 69; RESP 19
[2017-03-14 08:10] VITALS: BP 108/61; PULSE 143; RESP 14
[2017-03-14] MEDS: MAGNESIUM HYDROXIDE 30ML CUP PO SCH (08:40)
[2017-03-14] MEDS: SENNA/DOCUSATE NA (8.6MG/50MG) TAB PO SCH (08:40)
[2017-03-14] MEDS ORDERED: MEASLES,MUMPS,RUBELLA VACCINE INJ SC* ONE (09:00)
[2017-03-14] MEDS ORDERED: DIPHTH/TET/ACEL PERTUSS (ADULT) 0.5 ML VIAL IM* ONE (09:00)
[2017-03-14] MEDS ORDERED: VARICELLA VACCINE LIVE/PF 1,350 UNIT/0.5 ML ML SC* ONE (09:00)
[2017-03-14 09:17] LABS: BASOPHILS % 0.4 % (0.0-2.0); EOSINOPHILS # 0.1 10^3/ul (0.0-0.5); EOSINOPHILS % 0.5 % (0.0-7.0); HEMATOCRIT 29.3 % (37.0-47.0); HEMOGLOBIN 9.2 g/dl (12.0-16.0); LYMPHOCYTES # 1.2 10^3/ul (0.8-2.9); LYMPHOCYTES % 12.5 % (15.0-51.0); MEAN CORPUSCULAR HEMOGLOBIN 25.8 pg (29.0-33.0); MEAN CORPUSCULAR HGB CONC 31.4 g/dl (32.0-37.0); MEAN CORPUSCULAR VOLUME 82.1 fl (82.0-101.0); MEAN PLATELET VOLUME 10.6 fl (7.4-10.4); MONOCYTE # 0.5 10^3/ul (0.3-0.9); MONOCYTES % 4.9 % (0.0-11.0); NEUTROPHIL # 7.7 10^3/ul (1.6-7.5); NEUTROPHILS % 81.3 % (39.0-77.0); PLATELET COUNT 237 10^3/UL (140-415); RED BLOOD COUNT 3.57 10^6/ul (4.20-5.40); RED CELL DISTRIBUTION WIDTH 14.9 % (11.5-14.5); WHITE BLOOD COUNT 9.5 10^3/ul (4.8-10.8)
[2017-03-14 15:30] VITALS: BP 110/66; PULSE 81; RESP 14
== END 2017-03-14 16:15 | disposition home or self-care (01) | DRG 775 ==
LOC: OBT 19:34 → L-D 19:35 → OBT 23:10 → L-D 23:10 → PP1 03-12 22:35
PROVIDERS: ADMIT Obstetrics & Gynecology; ATTEND Obstetrics & Gynecology
PROC: 10E0XZZ Delivery of Products of Conception, External Approach (ICD-10-PCS; principal; 2017-03-12)
PROC: 0HQ9XZZ Repair Perineum Skin, External Approach (ICD-10-PCS; 2017-03-12)
DX: O70.0 First degree perineal laceration during delivery (principal); Z37.0 Single live birth; Z3A.39 39 weeks gestation of pregnancy
CPT/HCPCS: 62319; 81001; 85025; 85610; 85730; 86592; 86900; 86901; 87340; 90715; 90716; G0463; J0595; J2405; J2590; J3010; J7120